=== PATIENT | female | born 1960 | race American Indian/Alaskan Native ===

== ENCOUNTER 2016-12-22 22:46 | Emergency (ER) | payer BC, OTHER ==
[~2016-12-22] VITALS: Ht 165.1 cm; Wt 80.7 kg
[~2016-12-22 22:46] MED LIST: CLOPIDOGREL75 MG PO; CRESTOR20 MG PO; GLIPIZIDE XL10 MG PO; JANUVIA100 MG PO; LISINOPRIL10 MG PO; METFORMIN HCL1000 MG PO; NORCO 5-325 TA1 EACH PO; PRILOSEC20 MG PO; PROMETHAZINE HC25 M1 PO
[2016-12-22] MEDS ORDERED: PANTOPRAZOLE SO40 MG PO (23:43)
[2016-12-23] MEDS ORDERED: NAPROXEN500 MG PO (01:00)
[2016-12-23] MEDS ORDERED: NORCO 5-325 TA1 EACH PO (01:00)
== END 2016-12-23 01:27 | disposition home or self-care (01) ==
LOC: ED 22:46
DX: M54.42 Lumbago with sciatica, left side (principal); E11.9 Type 2 diabetes mellitus without complications; F17.200 Nicotine dependence, unspecified, uncomplicated; Z90.49 Acquired absence of other specified parts of digestive tract; Z88.2 Allergy status to sulfonamides; Z79.899 Other long term (current) drug therapy; Z79.84 Long term (current) use of oral hypoglycemic drugs
CPT/HCPCS: 81001; 99283

== ENCOUNTER 2018-07-28 15:39 | Observation (INO) | payer OTHER ==
[~2018-07-28] VITALS: Ht 154.9 cm; Wt 79.2 kg
[~2018-07-28 15:39] MED LIST changes: -CRESTOR20 MG PO; +CRESTOR40 MG PO; -LISINOPRIL10 MG PO; +LISINOPRIL5 MG PO; +NAPROXEN500 MG PO; +PANTOPRAZOLE SO40 MG PO
--- NOTE | 2018-07-28 20:40 | NUR ---
RECEIVED REPORT FROM FANNIE IN ER. ALL QUESTIONS ANSWERED. AWAITING PT'S ARRIVAL TO FLOOR.
--- NOTE | 2018-07-28 20:58 | NUR ---
PT ARRIVED TO [facility] FLOOR. LOZENGE DOUGH MIXER ANT IN ROOM TO COMPLETE INITIAL ADMIT.
--- NOTE | 2018-07-28 21:15 | NUR ---
PT ADMITTED TO ROOM 124, FROM ED. SHE STATES SHE HAS BEEN COUGHING FOR COUPLE WEEKS NOW, HAS BEEN SNOWED IN AND UNABLE TO GET TO HER DR., WAS JUST GETTING WORSE. ABLE TO STAND OFF THE STRETCHER, TO THE STANDING SCALE WITH SBA, RA SATS IN THE 90'S, WITH NONPRODUCTIVE COUGH. COMPLAINS OF WEAKNESS, DENIES SMOKING OF RECENT. PT SL IN LAC, FLUSHES WELL; UP TO VOID WITHOUT DIFFICULTIES, STEADY ON FEET. IS CONCERNED ABOUT "YEAST INFECTION" BEING ON ABX. WILL LET PRIMARY RN, IN AM KNOW WELL THE CHARGE NURSE TO DISCUSS WITH . PT REQUESTED AND RECEIVED LUNCH BOX, DIET SPRITE, FRESH ICE WATER, AND SUGAR FREE PUDDING.
--- NOTE | 2018-07-28 23:48 | NUR ---
ASSESSMENT DONE. VVS FROM INITIAL ADMIT. PT REPORTS SOB W/ EXERTION. INTERMITTENT COUGH NOTED, PT REPORTS THIN CLEAR SPUTUM W/ COUGH. WHEEZES AUSCULATED W/ COUGH. PT REPORTS 8/10 PAIN R/T HEADACHE. PRN TYLENOL GIVEN. PT DENIES FURTHER NEEDS, CALL LIGHT IN REACH.
--- NOTE | 2018-07-29 01:58 | NUR ---
VITALS AND I&OS DONE AND CHARTED. BEDSIDE TABLE AND CALL LIGHT IN REACH. PT NEEDS NOTHING AT THIS TIME.
--- NOTE | 2018-07-29 06:18 | NUR ---
ASSESSMENT COMPLETE. NO NEW CONCERNS. PT CONTINUES TO HAVE INTERMITTENT COUGHING W/ THIN CLEAR SPUTUM PER PT. PT ON , SAT WNL. PRN TYLENOL GIVEN FOR 7/10 PAIN R/T HEADACHE. NO FURTHER NEEDS, CALL LIGHT IN REACH.
--- NOTE | 2018-07-29 07:00 | NUR ---
PT A/OX4, VSS. PAIN CONTROLLED WITH PRN TYLENOL FOR HEADACHE. PT ON RA, LUNG SOUNDS CLEAR, INTERMITTENT WHEEZES AT TIMES W/ COUGH. PRODUCTIVE COUGH W/ THIN WHITE SPUTUM. DYSPNEA W/ EXERTION, PT SBA. USES CALL LIGHT APPROPERITELY.
--- NOTE | 2018-07-29 08:29 | NUR ---
PATIENT FLU SWAB DONE THIS AM BY THE RN, PATIENT IS UP IN THE ROOM ON RA WITH NO C/O SOB. SHE HAS RELIEF OF HER ZAMBRANO AFTER TAKING THE TYLENOL PO THIS AM AND DENIES ANY OTHER PAIN. SHE STILL IS COUGHING UP THIN WHITE SPUTUM.
--- NOTE | 2018-07-29 08:47 | NUR ---
PATIENTS URINE SAMPLE COLLECTED AND SENT TO LAB
--- NOTE | 2018-07-29 10:35 | NUR ---
PROCAUTIONS FOR INFLUENZA DC'D DUE TO THE SWAB COMING BACK NEGATIVE, PATIENT'S ECHO BEING DONE IN THE ROOM AT THIS TIME.
--- NOTE | 2018-07-29 11:00 | NUR ---
PATIENT TOOK A SHOWER. CHANGED HER BED LINENS. SHE ALSO WASHED HER HAIR. SHE ALSO HAD A VISITOR.
[2018-07-29] MEDS ORDERED: FLONASE ALLERG9.9 ML NAS (11:29)
--- NOTE | 2018-07-29 11:30 | NUR ---
MED REC COMPLETE
--- NOTE | 2018-07-29 11:37 | NUR ---
DID PATIENT'S BLOOD SUGARS BREAKFAST LUNCH AND DINNER.
[2018-07-29] MEDS ORDERED: COLACE100 MG PO (11:52)
[2018-07-29] MEDS ORDERED: XYZAL5 MG PO (11:52)
--- NOTE | 2018-07-29 15:19 | NUR ---
PATIENT AMBULATED IN THE HALLWAY WITH STANDBY ASSIST, PATIENT REMAINED ABOVE 90 OXYGEN SATURATION MOST OF THE TIME BUT DID DROP DOWN TO 89% FOR A VERY SHORT TIME APROX. 5 SECONDS AND THEN BUMPED BACK UP ABOVE 90. SHE STATES THAT SHE HAS SOME SOB AND COUGHING WITH AMBULATION.
--- NOTE | 2018-07-29 17:09 | NUR ---
THIS PATIENT HAS REMAINED ON RA TODAY WITH C/O SOB WHEN UP AMBULATING. HER OXYGEN SATURATION DROPPED TO 89% WITH AMBULATION IN THE HALLWAY FOR ABOUT 5 SECONDS AND THEN THE PATIENT RECOVERED QUICKLY WITH O2 SATUATIONS ABOVE 90%. SHE HAS A DRY COUGH AND FEELS RELEIF OF SOB AFTER 2 DOSES OF LASIX TODAY.
--- NOTE | 2018-07-29 18:55 | NUR ---
SHIFT REPORT RECEIVED FROM DAYSHIFT LIT BOATENG. PT AWAKE, RR EVEN AND UNLABORED. PT APPEARS IN GOOD SPIRITS, SMILING NOTED. WHITE BOARD UPDATED. PT DENIES NEEDS, CALL LIGHT IN REACH.
--- NOTE | 2018-07-29 21:14 | NUR ---
patient was feeling a little hungry and asked for a snack. I double checked with Sue and she said that was okay. the patient recieved a SF quintono. patients call light was within reach.
--- NOTE | 2018-07-29 21:36 | NUR ---
ASSESSMENT COMPLETE, SCHEDULED MEDICATIONS GIVEN. SEE EMAR. PT A/OX4, RATES PAIN 12/22, R/T HEADACHE. PRN TYLENOL GIVEN PER PT REQUEST. VSS. LUNG SOUNDS CLEAR, INTERMITTENT COUGHING NOTED. PT STATES, "I FEEL BETTER TODAY". BS 214, 3 UNITS INSULIN SS GIVEN. PT AMBULATED 1/2 LOOP IN HALLWAY WITH THIS RN. PT TOLERATED AMBULATION WELL, MAINTAINED O2 SAT IN 90'S. PT NOW RESTING IN BED, DENIES FURTHER NEEDS. CALL LIGHT IN REACH.
--- NOTE | 2018-07-30 00:30 | NUR ---
PT VERBALIZES INABILITY TO SLEEP AND REQUESTING MELATONIN. MELATONIN NOT LISTED ON PT'S EMAR. SPOKE TO PT REGARDING NONPHARMACOLOGICAL SLEEP AID, PT AGREES TO TRY. PROVIDED PT WITH COMPLIMENTARY SLEEP NIGHT PACK. MUSIC ALSO PROVIDED VIA CD PLAYER. PT DENIES FURTHER NEEDS, CALL LIGHT IN REACH.
--- NOTE | 2018-07-30 03:15 | NUR ---
PT RESTING IN BED, EYES CLOSED. RR IS EVEN AND UNLABORED. PT APPEARS COMFORTABLE, NO SIGNS OF RESPIRTAORY DISTRESS NOTED. CALL LIGHT IN REACH.
--- NOTE | 2018-07-30 04:14 | NUR ---
ASSESSMENT COMPLETE. PT A/OX4, DENIES PAIN AND STATES, "MY HEADACHE WENT AWAY". INTERMITTENT COUGHING NOTED W/ AUSCULTATION. LUNG SOUNDS CLEAR. PT VERBALIZES THAT SHE IS STILL COUGHING UP THIN WHITE SPUTUM AT TIMES. DENIES NEEDS, CALL LIGHT IN REACH.
--- NOTE | 2018-07-30 07:35 | NUR ---
RECIEVED BEDSIDE REPORT FROM LIT WHITTAKER. PT AWAKE AND ALERT IN BED. PT REPORTS NO SOB, MILD HEADACHE PAIN, REQUESTED TYLENOL. CALL LIGHT IN REACH. PT HAD 3# WEIGHT LOSS.
--- NOTE | 2018-07-30 11:38 | NUR ---
DID PATIENT'S BLOOD SUGAR THIS MORNING ALSO SET HER UP FOR A SHOWER AND WE DID 1 LAP AROUND MED SURG.
--- NOTE | 2018-07-30 12:38 | NUR ---
PT SITTING IN CHAIR, WATCHING TV. SHE MENTIONED THAT SHE FEELS SO MUCH BETTER THAT WHEN SHE WAS ADMITTED. THANKED ME FOR COMING IN. WILL FOLLOW NEEDED
[2018-07-30] MEDS ORDERED: DOXYCYCLINE HY100 MG PO (12:45)
[2018-07-30] MEDS ORDERED: POTASSIUM CHLO20 ME1 PO (12:46)
[2018-07-30] MEDS ORDERED: FUROSEMIDE40 MG PO (12:47)
[2018-07-30] MEDS ORDERED: TESSALON PERLE100 MG PO (12:51)
[2018-07-30] MEDS ORDERED: VENTOLIN HFA18 GM INH (14:20)
--- NOTE | 2018-07-30 16:40 | NUR ---
PT DISCHARGE TEACHING COMPLETE. PT HAD QUESTIONS ON MEDICATIONS AND REQUESTED DOSE OF ANTI-FUNGAL FOR YEAST INFECTION DUE TO ANTIBIOTICS. DR HICKS ORDERED ONE TIME DOSE OF ORAL MEDICATION. ALL OTHER MEDICATIONS PRINTED AND SENT TO [facility]. PT SISTER CAME FOR PT. IV REMOVED, CATH INTACT. VSS.
== END 2018-07-30 16:15 | disposition home or self-care (01) ==
LOC: ED 15:39 → MS 15:41
PROVIDERS: ADMIT Student in an Organized Health Care Education/Training Program
DX: J18.9 Pneumonia, unspecified organism (principal); E11.9 Type 2 diabetes mellitus without complications; F17.200 Nicotine dependence, unspecified, uncomplicated; I10 Essential (primary) hypertension; E87.70 Fluid overload, unspecified; J96.91 Respiratory failure, unspecified with hypoxia; Z86.73 Personal history of transient ischemic attack (TIA), and cerebral infarction without residual deficits; Z88.2 Allergy status to sulfonamides; Z79.84 Long term (current) use of oral hypoglycemic drugs; Z79.02 Long term (current) use of antithrombotics/antiplatelets; Z79.899 Other long term (current) drug therapy
CPT/HCPCS: 36415; 71045; 80048; 80053; 81001; 83605; 83735; 83880; 85025; 87040; 87502; 93306; 94640; 96365; 96366; 96367; 96368; 96375; 96376; 99285-25; 99406; G0378; J0456; J0696; J1815; J1940; J3475

== ENCOUNTER 2019-04-26 12:08 | Emergency (ER) | payer BC, OTHER ==
[~2019-04-26] VITALS: Ht 154.9 cm; Wt 79.2 kg
--- OUTSIDE RECORDS SUMMARY | ~2019-04-26 | XMS | Encounter Summary ---
Demographics + + + | Address | [address] | | | [place] [address] | + + + | Home Phone | | + + + | Preferred Language | Unknown | + + + | Marital Status | Unknown | + + + | Faith Affiliation | Unknown | + + + | Race | Unknown | + + + | Ethnic Group | Unknown | + + + Author + + + | Author | [facility] | | | and [place] | + + + | Organization | [facility] | | | and [place] | + + + | Address | Unknown | + + + | Phone | Unavailable | + + + Support + + +---------+ + | Name | Relationship | Address | Phone | + + +---------+ + | Paige Sanz | ECON | Unknown | | + + +---------+ + Care Team Providers + +------+ + | Care Glove Brusher Name | Role | Phone | + +------+ + | Jess Sow PA-C | PCP | | + +------+ + Encounter Details +--------+ + + + + | Date | Type | Department | Care Team | Description | +--------+ + + + + | 07/29/ | Orders Only | [facility] | [address] | | | 2019 | | [address] | | [address] | [place] [address] | | | | | [place], [place] | [phone] | | | | | [address] | | | | | | [phone] | | | +--------+ + + + + Social History + +-------+ +--------+------+ | Tobacco Use | Types | Packs/Day | Years | Date | | | | | Used | | + +-------+ +--------+------+ | Never Assessed | | | | | + +-------+ +--------+------+ + + + | Sex Assigned at | Date Recorded | | | | + + + | Not on file | | + + + + + + + | Job Start Date | Occupation | Industry | + + + + | Not on file | Not on file | Not on file | + + + + + + + + | Travel History | Travel Start | Travel End | + + + + + + | No recent travel history available. | + + documented as of this encounter Plan of Treatment +--------+---------+ + + + | Date | Type | Specialty | Care Team | Description | +--------+---------+ + + + | 05/09/ | Office | Cardiology | Hilda Judge | | | 2019 | Visit | | [address] | | | | | | [address] | | | | | | [place] [address] | | | | | | [phone] | | | | | | | | +--------+---------+ + + + documented as of this encounter Procedures + +--------+ + + + | Procedure Name | Priori | Date/Time | Associated Diagnosis | Comments | | | ty | | | | + +--------+ + + + | ECHO INTERPRETATION | Routin | 07/29/2018 | | Results for this | | OF OUTSIDE FILMS | e | 11:25 AM | | procedure are in the | | | | PST | | results section. | + +--------+ + + + documented in this encounter Results ECHO Interpretation of Outside Films (07/29/2018 11:25 AM PST) + + | Specimen | + + | | + + + + + | Impressions | Performed At | + + + | 1. The left ventricle is normal in size, wall thickness and low | | | normal systolic function EF 50-55%. 2. The right ventricle is normal | | | in size and function. 3. Moderate mitral regurgitation, posterior | | | directed, moderately dilated left atrium. 4. There is a trivial | | | pericardial effusion present. | | + + + + + + | Narrative | Performed At | + + + | Patient Name: Batsheva Rosa Date of : 1960 | | | Performing Physician: Rmoel Kline | | | | | | INDICATIONS Volume overload, pneumonia CONCLUSIONS | | | 1. The left ventricle is normal in size, wall thickness | | | and low normal systolic function EF 50-55%. 2. The right ventricle is | | | normal in size and function. 3. Moderate mitral regurgitation, | | | posterior directed, moderately dilated left atrium. 4. There is a | | | trivial pericardial effusion present. FINDINGS -------- ECG | | | rhythm: Sinus rhythm with irregular beats. Study: A 2-dimensional | | | transthoracic echocardiogram with m-mode, spectral and color flow | | | Doppler was perfomed. Study: This was a technically adequate study. | | | Left Ventricle: Overall left ventricular systolic function is | | | low-normal with, an EF between 50 - 55 %. Left Ventricle: The left | | | ventricle cavity size is normal. Left Ventricle: Left ventricular | | | wall thickness is normal. Left Ventricle: There is mild global | | | hypokinesis of LV contractility. Left Ventricle: Pseudonormal LV | | | diastolic filling pattern, consistent with elevated LA pressure and | | | moderate dysfunction (Grade II). Right Ventricle: The right ventricle | | | is normal in size and function. Left Atrium: The left atrium is | | | moderately enlarged. Right Atrium: The right atrium is normal in | | | size. Aortic Valve: The aortic valve appears to be trileaflet. | | | Aortic Valve: There is no evidence of aortic regurgitation. Aortic | | | Valve: There is no evidence of aortic stenosis. Mitral Valve: Mitral | | | valve is thickened. Mitral Valve: Moderate mitral regurgitation is | | | present Mitral Valve: , predominately a posteriorly directed jet. | | | Tricuspid Valve: The tricuspid valve appears structurally normal. | | | Tricuspid Valve: Mild tricuspid regurgitation present. Tricuspid | | | Valve: There is mild pulmonary hypertension. Tricuspid Valve: The | | | right ventricular systolic pressure (pulmonary artery systolic | | | pressure), as measured by Doppler, is 35.51mmHg. Pulmonic Valve: The | | | pulmonic valve is normal. Pulmonic Valve: Trace pulmonic | | | regurgitation. Pericardium: There is a trivial pericardial effusion | | | present. Pericardium: Pleural effusion present seen in image #72. | | | IVC/Hepatic Veins: The IVC is normal size (1.5-2.5cm) and collapses | | | >50% with sniff, consistent with central venous pressures of 5-10mmHg. | | | Aorta: Aortic arch not well seen. MEASUREMENTS | | | Ao asc: 2.85 cm Ao Diam: 2.75 cm Ao sinus: 3.[address] | | | junct: 2.43 cm IVC: 1.85 cm LA Major: 4.94 cm EDV(Teich): | | | 128.59 ml IVSd: 0.83 cm LVIDd: 5.18 cm LVPWd: 0.83 cm | | | LVOT Area: 3.15 cm2 LVOT Diam: 2.00 cm %FS: 21.94 % | | | EF(Teich): 44.04 % ESV(Teich): 71.94 ml LVIDs: 4.04 cm | | | SV(Teich): 56.64 ml RA Major: 4.72 cm RV Major: 6.79 cm RV | | | Minor: 3.17 cm RVIDd: 2.80 cm LVEF MOD A2C: 46.15 % SV | | | MOD A2C: 41.11 ml LVEF MOD A4C: 46.47 % SV MOD A4C: 44.18 | | | ml EF Biplane: 47.22 % LVEDV MOD BP: 94.48 ml LVESV MOD BP: | | | 49.86 ml LVEDV MOD A2C: 89.07 ml LVLd A2C: 7.02 cm LVEDV | | | MOD A4C: 95.07 ml LVLd A4C: 7.08 cm LVESV MOD A2C: 47.96 ml | | | LVLs A2C: 6.25 cm LVESV MOD A4C: 50.88 ml LVLs A4C: 6.06 | | | cm LAESV(A-L): 80.37 ml LAESV Index (A-L): 44.65 ml/m2 LAAs | | | A2C: 21.66 cm2 LAESV A-L A2C: 74.74 ml LALs A2C: 5.32 cm | | | LAAs A4C: 22.69 cm2 LAESV A-L A4C: 84.20 ml LALs A4C: 5.19 | | | cm RAAs: 15.30 cm2 RAESV A-L: 41.96 ml RAESV MOD: 40.64 ml | | | RALs: 4.73 cm TAPSE: 2.30 cm AV maxP.17 mmHg AV | | | meanP.12 mmHg AV Vmax: 1.13 m/s AV Vmean: 0.83 m/s AV | | | VTI: 23.21 cm GREGORY Vmax: 2.29 cm2 GREGORY (VTI): 2.25 cm2 AVAI | | | Vmax: 0.00 cm2/m2 AVAI (VTI): 0.00 cm2/m2 LVOT maxP.75 | | | mmHg LVOT meanP.52 mmHg LVSI Dopp: 29.05 ml/m2 LVSV Dopp: | | | 52.30 ml LVOT Vmax: 0.82 m/s LVOT Vmean: 0.58 m/s LVOT | | | VTI: 16.59 cm MV A Derick: 0.63 m/s MV Dec Beadle: 11.44 m/s2 | | | MV DecT: 94.72 ms MV E Derick: 1.08 m/s MV E/A Ratio: 1.70 MV | | | PHT: 27.47 ms MVA By PHT: 8.00 cm2 Septal e': 0.03 m/s | | | Septal E/e': 32.67 Lateral e': 0.06 m/s Lateral E/e': 17.97 | | | RAP: 5 mmHg RVSP: 35.51 mmHg TR maxP.51 mmHg TR | | | Vmax: 2.76 m/s Laundry Routeman: LIAT Authenticated by: Romel | | | Eliud Report Date/Time: 07-29-2018 16:58:26 | | + + + + ---------+ | Procedure Note | + ---------+ | Jesus, Rad Conversion - 02/03/2019 1:45 PM PDT Patient Name: Kelton Rosa of | | : 1960 Performing Physician: Romel | | Eliud INDICATIONS------ | | -----Volume overload, pneumonia CONCLUSIONS 1. The left ventricle is normal in | | size, wall thickness and low normal systolic function EF 50-55%.2. The right ventricle | | is normal in size and function.3. Moderate mitral regurgitation, posterior directed, | | moderately dilated left atrium.4. There is a trivial pericardial effusion present. | | FINDINGS--------ECG rhythm: Sinus rhythm with irregular beats.Study: A 2-dimensional | | transthoracic echocardiogram with m-mode, spectral and color flow Doppler was | | perfomed.Study: This was a technically adequate study.Left Ventricle: Overall left | | ventricular systolic function is low-normal with, an EF between 50 - 55 %.Left | | Ventricle: The left ventricle cavity size is normal.Left Ventricle: Left ventricular | | wall thickness is normal.Left Ventricle: There is mild global hypokinesis of LV | | contractility.Left Ventricle: Pseudonormal LV diastolic filling pattern, consistent with | | elevated LA pressure and moderate dysfunction (Grade II).Right Ventricle: The right | | ventricle is normal in size and function.Left Atrium: The left atrium is moderately | | enlarged.Right Atrium: The right atrium is normal in size.Aortic Valve: The aortic valve | | appears to be trileaflet.Aortic Valve: There is no evidence of aortic | | regurgitation.Aortic Valve: There is no evidence of aortic stenosis.Mitral Valve: Mitral | | valve is thickened.Mitral Valve: Moderate mitral regurgitation is presentMitral Valve: | | , predominately a posteriorly directed jet.Tricuspid Valve: The tricuspid valve appears | | structurally normal.Tricuspid Valve: Mild tricuspid regurgitation present.Tricuspid | | Valve: There is mild pulmonary hypertension.Tricuspid Valve: The right ventricular | | systolic pressure (pulmonary artery systolic pressure), as measured by Doppler, is | | 35.51mmHg.Pulmonic Valve: The pulmonic valve is normal.Pulmonic Valve: Trace pulmonic | | regurgitation.Pericardium: There is a trivial pericardial effusion present.Pericardium: | | Pleural effusion present seen in image #72.IVC/Hepatic Veins: The IVC is normal size | | (1.5-2.5cm) and collapses >50% with sniff, consistent with central venous pressures of | | 5-10mmHg.Aorta: Aortic arch not well seen. MEASUREMENTS Ao asc: 2.85 cmAo | | Diam: 2.75 cmAo sinus: 3.[address] junct: 2.43 cmIVC: 1.85 cmLA Major: 4.94 | | cmEDV(Teich): 128.59 mlIVSd: 0.83 cmLVIDd: 5.18 cmLVPWd: 0.83 cmLVOT Area: | | 3.15 [id number] Diam: 2.00 cm%FS: 21.94 %EF(Teich): 44.04 %ESV(Teich): 71.94 | | mlLVIDs: 4.04 cmSV(Teich): 56.64 mlRA Major: 4.72 cmRV Major: 6.79 cmRV Minor: | | 3.17 cmRVIDd: 2.80 cmLVEF MOD A2C: 46.15 %SV MOD A2C: 41.11 mlLVEF MOD A4C: | | 46.47 %SV MOD A4C: 44.18 mlEF Biplane: 47.22 %LVEDV MOD BP: 94.48 mlLVESV MOD BP: | | 49.86 mlLVEDV MOD A2C: 89.07 mlLVLd A2C: 7.02 cmLVEDV MOD A4C: 95.07 mlLVLd A4C: | | 7.08 cmLVESV MOD A2C: 47.96 mlLVLs A2C: 6.25 cmLVESV MOD A4C: 50.88 mlLVLs A4C: | | 6.06 cmLAESV(A-L): 80.37 mlLAESV Index (A-L): 44.65 ml/m2LAAs A2C: 21.66 | | [id number] A-L A2C: 74.74 mlLALs A2C: 5.32 cmLAAs A4C: 22.69 [id number] A-L A4C: | | 84.20 mlLALs A4C: 5.19 cmRAAs: 15.30 [id number] A-L: 41.96 mlRAESV MOD: 40.64 | | mlRALs: 4.73 cmTAPSE: 2.30 cmAV maxP.17 mmHgAV meanP.12 mmHgAV Vmax: | | 1.13 m/Helio Vmean: 0.83 m/Helio VTI: 23.21 cmAVA Vmax: 2.29 cm2AVA (VTI): 2.25 | | [id number] Vmax: 0.00 cm2/m2AVAI (VTI): 0.00 cm2/m2LVOT maxP.75 mmHgLVOT meanPG: | | 1.52 mmHgLVSI Dopp: 29.05 ml/m2LVSV Dopp: 52.30 mlLVOT Vmax: 0.82 m/sLVOT Vmean: | | 0.58 m/sLVOT VTI: 16.59 cmMV A Derick: 0.63 m/sMV Dec Beadle: 11.44 m/s2MV DecT: | | 94.72 msMV E Derick: 1.08 m/sMV E/A Ratio: 1.70MV PHT: 27.47 msMVA By PHT: 8.00 | | [id number] e': 0.03 m/sSeptal E/e': 32.67Lateral e': 0.06 m/sLateral E/e': | | 17.97RAP: 5 mmHgRVSP: 35.51 mmHgTR maxP.51 mmHgTR Vmax: 2.76 m/s | | Laundry Routeman: DHAuthenticated by: Romel [facility] Date/Time: 07-29-2018 16:58:26 | | IMPRESSION: 1. The left ventricle is normal in size, wall thickness and low normal | | systolic function EF 50-55%.2. The right ventricle is normal in size and function.3. | | Moderate mitral regurgitation, posterior directed, moderately dilated left atrium.4. | | There is a trivial pericardial effusion present. | |Ao sinus: 3.02 cm | |Ao st junct: 2.43 cm | |IVC: 1.85 cm | |LA Major: 4.94 cm | |EDV(Teich): 128.59 ml | |IVSd: 0.83 cm | |LVIDd: 5.18 cm | |LVPWd: 0.83 cm | |LVOT Area: 3.15 cm2 | |LVOT Diam: 2.00 cm | |%FS: 21.94 % | |EF(Teich): 44.04 % | |ESV(Teich): 71.94 ml | |LVIDs: 4.04 cm | |SV(Teich): 56.64 ml | |RA Major: 4.72 cm | |RV Major: 6.79 cm | |RV Minor: 3.17 cm | |RVIDd: 2.80 cm | |LVEF MOD A2C: 46.15 % | |SV MOD A2C: 41.11 ml | |LVEF MOD A4C: 46.47 % | |SV MOD A4C: 44.18 ml | |EF Biplane: 47.22 % | |LVEDV MOD BP: 94.48 ml | |LVESV MOD BP: 49.86 ml | |LVEDV MOD A2C: 89.07 ml | |LVLd A2C: 7.02 cm | |LVEDV MOD A4C: 95.07 ml | |LVLd A4C: 7.08 cm | |LVESV MOD A2C: 47.96 ml | |LVLs A2C: 6.25 cm | |LVESV MOD A4C: 50.88 ml | |LVLs A4C: 6.06 cm | |LAESV(A-L): 80.37 ml | |LAESV Index (A-L): 44.65 ml/m2 | |LAAs A2C: 21.66 cm2 | |LAESV A-L A2C: 74.74 ml | |LALs A2C: 5.32 cm | |LAAs A4C: 22.69 cm2 | |LAESV A-L A4C: 84.20 ml | |LALs A4C: 5.19 cm | |RAAs: 15.30 cm2 | |RAESV A-L: 41.96 ml | |RAESV MOD: 40.64 ml | |RALs: 4.73 cm | |TAPSE: 2.30 cm | |AV maxP.17 mmHg | |AV meanP.12 mmHg | |AV Vmax: 1.13 m/s | |AV Vmean: 0.83 m/s | |AV VTI: 23.21 cm | |GREGORY Vmax: 2.29 cm2 | |GREGORY (VTI): 2.25 cm2 | |AVAI Vmax: 0.00 cm2/m2 | |AVAI (VTI): 0.00 cm2/m2 | |LVOT maxP.75 mmHg | |LVOT meanP.52 mmHg | |LVSI Dopp: 29.05 ml/m2 | |LVSV Dopp: 52.30 ml | |LVOT Vmax: 0.82 m/s | |LVOT Vmean: 0.58 m/s | |LVOT VTI: 16.59 cm | |MV A Derick: 0.63 m/s | |MV Dec Beadle: 11.44 m/s2 | |MV DecT: 94.72 ms | |MV E Derick: 1.08 m/s | |MV E/A Ratio: 1.70 | |MV PHT: 27.47 ms | |MVA By PHT: 8.00 cm2 | |Septal e': 0.03 m/s | |Septal E/e': 32.67 | |Lateral e': 0.06 m/s | |Lateral E/e': 17.97 | |RAP: 5 mmHg | |RVSP: 35.51 mmHg | |TR maxP.51 mmHg | |TR Vmax: 2.76 m/s | | | |Laundry Routeman: LIAT | |Authenticated by: Romel Kline | |Report Date/Time: 07-29-2018 16:58:26 | | | |IMPRESSION: | |1. The left ventricle is normal in size, wall thickness and low normal systolic function EF 50-55%. | |2. The right ventricle is normal in size and function. | |3. Moderate mitral regurgitation, posterior directed, moderately dilated left atrium. | |4. There is a trivial pericardial effusion present. | + ---------+ documented in this encounter Visit Diagnoses Not on filedocumented in this encounter"
--- OUTSIDE RECORDS SUMMARY | ~2019-04-26 | XMS | Encounter Summary ---
Demographics + + + | Address | [address] | | | [place] [address] | + + + | Home Phone | | + + + | Preferred Language | Unknown | + + + | Marital Status | Unknown | + + + | Mu-Ism Affiliation | Unknown | + + + | Race | Unknown | + + + | Ethnic Group | Unknown | + + + Author + + + | Author | [facility] | | | and Alanana | + + + | Organization | [facility] | | | and Alanana | [...] Team Providers + +------+ + | Care Air Control/Anti Air Warfare Officer Name | Role | Phone | + [...] | | | | [address] | [place] [address] | | | | | [place], [place] | [phone] | | | | | [address] | | | | | | [phone] | | | +--------+ + + + [...] [address] | | | | | | [place] [address] | | | | | | [phone] | | | | | | | [...] : 1960 | | | Performing Physician: Romel Kline | | | | | | [...] MV A Derick: 0.63 m/s MV Dec Pocahontas: 11.44 m/s2 | | | MV DecT: [...] TR | | | Vmax: 2.76 m/s Police Guard: LIAT Authenticated by: Romel | | | [...] cmLVPWd: 0.83 cmLVOT Area: | | 3.15 re8EYYT Diam: 2.00 cm%FS: 21.94 %EF(Teich): 44.04 %ESV(Teich): [...] (A-L): 44.65 ml/m2LAAs A2C: 21.66 | | [id number] A-L A2C: 74.74 mlLALs A2C: 5.32 cmLAAs A4C: 22.69 im8MLYIU A-L A4C: | | 84.20 mlLALs A4C: 5.19 cmRAAs: 15.30 bw8MAOON A-L: 41.96 mlRAESV MOD: 40.64 | | mlRALs: 4.73 cmTAPSE: 2.30 cmAV maxP.17 mmHgAV meanP.12 mmHgAV Vmax: | | 1.13 m/Helio Vmean: 0.83 m/Helio VTI: 23.21 cmAVA Vmax: 2.29 cm2AVA (VTI): 2.25 | | vb2YIHW Vmax: 0.00 cm2/m2AVAI (VTI): 0.00 cm2/m2LVOT maxP.75 mmHgLVOT meanPG: | | 1.52 mmHgLVSI Dopp: 29.05 ml/m2LVSV Dopp: 52.30 mlLVOT Vmax: 0.82 m/sLVOT Vmean: | | 0.58 m/sLVOT VTI: 16.59 cmMV A Derick: 0.63 m/sMV Dec Pocahontas: 11.44 m/s2MV DecT: | | 94.72 msMV E Derick: 1.08 m/sMV E/A Ratio: 1.70MV PHT: 27.47 msMVA By PHT: 8.00 | | ne0Cjbmbm e': 0.03 m/sSeptal E/e': 32.67Lateral e': 0.06 m/sLateral E/e': | | 17.97RAP: 5 mmHgRVSP: 35.51 mmHgTR maxP.51 mmHgTR Vmax: 2.76 m/s | | Police Guard: DHAuthenticated by: Romel [facility] Date/Time: 07-29-2018 16:58:26 | | IMPRESSION: 1. [...] A Derick: 0.63 m/s | |MV Dec Pocahontas: 11.44 m/s2 | |MV DecT: 94.72 ms [...] |TR Vmax: 2.76 m/s | | | |Police Guard: LIAT | |Authenticated by: Romel Kline | [...]
--- OUTSIDE RECORDS SUMMARY | ~2019-04-26 | XMS | Clinical Summary ---
Demographics + + + | Address | [address] | | | [place] [address] | + + + | Home Phone | | + + + | Preferred Language | Unknown | + + + | Marital Status | Single | + + + | Adventism Affiliation | Unknown | + + + | Race | Unknown | + + + | Ethnic Group | Unknown | + + + Author + + + | Author | [facility] (Historical as of | | | 01-29-19) | + + + | Organization | [facility] (Historical as of | | | 01-29-19) | + + + | Address | Unknown | + + + | Phone | Unavailable | + + + Support + + +---------+ + | Name | Relationship | Address | Phone | + + +---------+ + | Paige Sanz | ECON | Unknown | | + + +---------+ + Care Team Providers + +------+ + | Care Field Artillery Basic Name | Role | Phone | + +------+ + | Jess Sow PA-C | PP | | + +------+ + Allergies Not on File Current Medications Not on file Active Problems Not on file Social History + +-------+ +--------+------+ | Tobacco [...] on file | | + + + Plan of Treatment + + + + + | Health Maintenance | Due Date | Last Done | Comments | + + + + + | Vaccine: | | | | | Dtap/Tdap/Td (1 - | 7 | | | | Tdap) | | | | + + + + + | Cervical Cancer | | | | | Screening (Pap) | 8 | | | + + + + + | Breast Cancer | | | | | Screening | 8 | | | | (Mammogram) | | | | + + + + + | Colon Cancer | | | | | Screening | 8 | | | | (Colonoscopy) | | | | + + + + + | Vaccine: Zoster (1 | | | | | of 2) | 8 | | | + + + + + | Vaccine: Influenza | | | | | (#1) | 9 | | | + + + + + Results Not on filefrom Last 3 Months Insurance + +--------+ +------+-------+ + | Payer | Benefi | Subscriber | Type | Phone | Address | | | t Plan | ID | | | | | | / | | | | | | | Group | | | | | + +--------+ +------+-------+ + | PREMERA | PREMER | [id number] | | | [address] [address] | | | A BLUE | | | | [place], [place] | | | [place] | | | | [address] | | | FED | | | | | | | PPO | | | | | + +--------+ +------+-------+ + | [employer] | YELLOW | [id number] | | | | | PLANS | [place] | | | | | + +--------+ +------+-------+ + + +--------+ +--------+ + + | Guarantor Name | Accoun | Relation to | Date | Phone | Billing Address | | | t Type | Patient | of | | | | | | | | | | + +--------+ +--------+ + + | NUNU MOURA | Person | Self | [birth year] | Home: | [address] | | | [place] | | [phone] | [phone] | [place] [address] | | | [place] | | | [phone] | | + +--------+ +--------+ + +"
--- OUTSIDE RECORDS SUMMARY | ~2019-04-26 | XMS | Clinical Summary ---
Demographics + + + | Address | [address] | | | [place] [address] | + + + | Home Phone | | + + + | Preferred Language | Unknown | + + + | Marital Status | Single | + + + | Sabianist Affiliation | Unknown | + + + | Race | Unknown | + + + | Ethnic Group | Unknown | + + + Author + + + | Author | [email or web address] (Historical as of | | | 01-29-19) | + + + | Organization | [email or web address] (Historical as of | | | 01-29-19) [...] Team Providers + +------+ + | Care Polyethylene Bag Machine Operator Name | Role | Phone | + [...] +------+-------+ + | PREMERA | PREMER | [id number] | | | [address] [address] | | | A BLUE | | | | [place], [place] | | | [place] | | | | [address] | | | FED | | | | | | | PPO | | | | | + +--------+ +------+-------+ + | [employer] | YELLOW | [id number] | | | | | PLANS | [...] | Self | [birth year] | Home: | [address] | | | [place] | | [phone] | [phone] | [place] [address] | | | [place] | | | [phone] | | + +--------+ +--------+ + +"
--- OUTSIDE RECORDS SUMMARY | ~2019-04-26 | XMS | Clinical Summary ---
Demographics + + + | Address | [address] | | | [place] [address] | + + + | Home Phone | | + + + | Preferred Language | Unknown | + + + | Marital Status | Unknown | + + + | Jainism Affiliation | Unknown | + + + | Race | Unknown | + + + | Ethnic Group | Unknown | + + + Author + + + | Author | [facility] | | | and Alanana | + + + | Organization | [facility] | | | and Alanana [...] Team Providers + +------+ + | Care Manager Universal Name | Role | Phone | + +------+ + | Jess Sow PA-C | PCP | | + +------+ + Allergies + + + + + + | Active Allergy | Reactions | Severity | Noted | Comments | | | | | Date | | + + + + + + | Sulfa Antibiotics | Hives | | 04/04/20 | | | | | | 19 | | + + + + + + Medications + + + +---------+------+------+-------+ | Medication | Sig | Dispensed | Refills | Star | End | Statu | | | | | | t | Date | s | | | | | | Date | | | + + + +---------+------+------+-------+ | acetaminophen | Take 650 mg by mouth | | 0 | | | Activ | | (TYLENOL) 325 mg | every 4 hours as | | | | | e | | tablet | needed for Pain. | | | | | | + + + +---------+------+------+-------+ | cholecalciferol | Take 5,000 Units by | | 0 | | | Activ | | (VITAMIN D-3) 5000 | mouth Daily. | | | | | e | | units TABS | | | | | | | + + + +---------+------+------+-------+ | clopidogrel | Take 75 mg by mouth | | 0 | | | Activ | | (PLAVIX) 75 mg | Daily. | | | | | e | | tablet | | | | | | | + + + +---------+------+------+-------+ | cyanocobalamin | Take 50 mcg by mouth | | 0 | | | Activ | | (VITAMIN B-12) 100 | Daily. | | | | | e | | MCG tablet | | | | | | | + + + +---------+------+------+-------+ | lisinopril | Take 5 mg by mouth | | 0 | | | Activ | | (PRINIVIL, ZESTRIL) | Daily. | | | | | e | | 5 mg tablet | | | | | | | + + + +---------+------+------+-------+ | Loratadine 10 MG | Take by mouth. | | 0 | | | Activ | | CAPS | | | | | | e | + + + +---------+------+------+-------+ | pantoprazole | Take 40 mg by mouth | | 0 | | | Activ | | (PROTONIX) 40 mg | every morning | | | | | e | | tablet | (before breakfast). | | | | | | + + + +---------+------+------+-------+ | rosuvastatin | Take 40 mg by mouth | | 0 | | | Activ | | (CRESTOR) 40 MG | nightly. | | | | | e | | tablet | | | | | | | + + + +---------+------+------+-------+ | | Take 1 tablet by | | 0 | | | Activ | | SITagliptin-metFORMI | mouth 2 times daily | | | | | e | | N (SANDRA) 50-1,000 | (with breakfast & | | | | | | | mg per tablet | dinner). | | | | | | + + + +---------+------+------+-------+ | bisoprolol | Take 1 tablet by | 30 | 11 | 10/2 | | Activ | | (ZEBETA) 5 mg tablet | mouth Daily. 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 | | | | | | (HCC); Pedal edema; | | | | | | Palpitations; | | | | | | Pressure in left | | | | | | side of chest; Type | | | | | | 2 diabetes mellitus | | | | | | 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, | | | | | | without long-term | | | | | | current use of | | | | | | insulin (HCC); | | | | | | Essential | | | | | | hypertension | +--------+---------+ + + + from Last 3 Months Family History + + +------+ + | Medical History | Relation | Name | Comments | + + +------+ + | Diabetes, NIDDM | Brother | | | + + +------+ + | Heart disease | Brother | | unknown heart problem | + + +------+ + | Diabetes, NIDDM | Brother | | | + + +------+ + | Diabetes, NIDDM | Brother | | | + + +------+ + | Other (see comment) | Brother | | PVD | + + +------+ + | Diabetes, NIDDM | Father | | | + + +------+ + | Heart failure | Father | | | + + +------+ + | Hypertension | Father | | | + + +------+ + | Other (see comment) | Father | | PVD | + + +------+ + | Stroke | Father | | x 2 | + + +------+ + | Diabetes, NIDDM | Mother | | | + + +------+ + | Heart failure | Mother | | | + + +------+ + | Hypertension | Mother | | | + + +------+ + | Other (see comment) | Mother | | PVD | + + +------+ + | Restless leg | Mother | | | + + +------+ + | Arrhythmia | Sister | | | + + +------+ + | Diabetes, NIDDM | Sister | | | + + +------+ + | Other (see comment) | Sister | | esophageal stricture | + + +------+ + + +------+ + + | Relation | Name | Status | Comments | + +------+ + + | Brother | | Alive | | + +------+ + + | Brother | | Alive | | + +------+ + + | Brother | | Alive | | + +------+ + + | Father | | | heart disease | | | | (Age | | | | | 81) | | + +------+ + + | Mother | | | heart disease | | | | (Age | | | | | 80) | | + +------+ + + | Sister | | Alive | | + +------+ + + | Sister | | Alive | | + +------+ + + Social History + +-------+ +--------+------+ | Tobacco Use | Types | Packs/Day | Years | Date | | | | | Used | | + +-------+ +--------+------+ | Current Some Day | | | | | | Smoker | | | | | + +-------+ +--------+------+ + +---+---+---+ | Smokeless Tobacco: | | | | | Never Used | | | | + +---+---+---+ + + | Tobacco Cessation: Ready to Quit: No; Counseling Given: Yes | | Comments: smokes 1 cigarette every 1-3 months | + + + + +---------+ + | Alcohol Use | Drinks/Week | oz/Week | Comments | + + +---------+ + | Yes | | | 1 rum drink 2 x per | | | | | month | + + +---------+ + + + + | Sex Assigned at [...] recent travel history available. | + + Last Filed Vital Signs + + + + + | Vital Sign | Reading | Time Taken | Comments | + + + + + | Blood Pressure | 140/90 | 2019 9:35 AM | RA | | | | PDT | | + + + + + | Pulse | 77 | 2019 9:30 AM | | | | | PDT | | + + + + + | Temperature | - | - | | + + + + + | Respiratory Rate | - | - | | + + + + + | Oxygen Saturation | 98% | 2019 9:30 AM | | | | | PDT | | + + + + + | Inhaled Oxygen | - | - | | | Concentration | | | | + + + + + | Weight | 86.6 kg (190 lb 14.4 | 2019 9:30 AM | | | | oz) | PDT | | + + + + + | Height | - | - | | + + + + + | Body Mass Index | - | - | | + + + + + Plan of Treatment +--------+---------+ + + + | Date | Type | Specialty | Care Team | Description | +--------+---------+ + + + | 05/09/ | Office | Cardiology | Hilda Judge | | | 2018 | Visit | | [address] | | | | | | [address] | | | | | | [place] [address] | | | | | | [phone] | | | | | | | | +--------+---------+ + + + + + + + + | Health Maintenance | Due Date | Last Done | Comments | + + + + + | Hepatitis C | | | | | Screening | 8 | | | + + + + + | Vaccine: | | | | | Pneumococcal 19-64 | 4 | | | | (1 of 1 - PPSV23) | | | | + + + + + | Diabetic Eye Exam | | | | | | 6 | | | + + + + + | Diabetic Foot Exam | | | | | | 6 | | | + + + + + | Hemoglobin A1c | | | | | Screening | 6 | | | + + + + + | Cervical Cancer | | | | | Screening (Pap) | 8 | | | + + + + + | Vaccine: | | 06/28/2004, 03/29/1997 | | | Dtap/Tdap/Td (1 - | 5 | | | | Tdap) | | | | + + + + + | Colorectal Cancer | | | | | Screening | 8 | | | | (Colonoscopy) | | | | + + + + + | Vaccine: Zoster (1 | | | | | of 2) | 8 | | | + + + + + | Breast Cancer | | | | | Screening | 3 | | | + + + + + | Vaccine: Influenza | | 08/17/2018, 04/15/2017, | | | (#1) | 9 | 03/26/2016, Additional history | | | | | exists | | + + + + + Procedures + +--------+ + + + | Procedure Name | Priori | Date/Time | Associated Diagnosis | Comments | | | ty | | | | + +--------+ + + + | ECG 12 LEAD | Routin | 2019 | Nonrheumatic | Results for this | | | e | 9:38 AM | mitral valve | procedure are in the | | | | PDT | regurgitation | results section. | + +--------+ + + + from Last 3 Months Results ECG 12 lead (2019 9:38 AM PDT) + + + + + + | Component | Value | Ref Range | Performed | Pathologist | | | | | At | Signature | + + + + + + | VENTRICULAR | 75 | BPM | [facility] | | | RATE EKG | | | | | + + + + + + | ATRIAL RATE | 75 | BPM | [facility] | | + + + + + + | P-R | 160 | ms | [facility] | | | INTERVAL | | | | | + + + + + + | QRS | 74 | ms | [facility] | | | DURATION | | | | | + + + + + + | Q-T | 398 | ms | [facility] | | | INTERVAL | | | | | + + + + + + | Q-T | 444 | ms | [facility] | | | INTERVAL | | | | | | (CORRECTED) | | | | | + + + + + + | P WAVE AXIS | 39 | degrees | [facility] | | + + + + + + | QRS AXIS | 43 | degrees | [facility] | | + + + + + + | T AXIS | 103 | degrees | [facility] | | + + + + + + | INTERPRETAT | Normal sinus | | [facility] | | | ION TEXT | rhythmNonspecific T wave | | | | | | abnormalityAbnormal | | | | | | ECGNo previous ECGs | | | | | | availablePlease refer to | | | | | | Providers office visit | | | | | | note for Providers | | | | | | Interpretation.Confirmed | | | | | | by [facility], | | | | | | [facility] ([id number]), | | | | | | editorial cartoonist Cosmo Gonzalez | | | | | | (253) on 2019 | | | | | | 10:39:40 AM | | | | + + + + + + + + | Specimen | + + | | + + + + + | Narrative | Performed At | + + + | | | + + + + +---------+ + + | Performing | Address | City/State/Zipcode | Phone Number | | Organization | | | | + +---------+ + + | [facility] | | | | + +---------+ + + from Last 3 Months Insurance + +--------+ +--------+-------+---------+--------+ | Payer | Benefi | Subscriber | Effect | Phone | Address | Type | | | t Plan | ID | mike | | | | | | / | | Dates | | | | | | Group | | | | | | + +--------+ +--------+-------+---------+--------+ | BCBS | BCBS | [id number] | | | | PPO | | | [place]OS | | 019-Pr | | | | | | PPO | | esent | | | | + +--------+ +--------+-------+---------+--------+ | [employer] | IHS | [id number] | Effect | | | Indemn | | SERVICE | YELLOW | | mike | | | ity | | | [place] | | for | | | | | | | | all | | | | | | | | dates | | | | + +--------+ +--------+-------+---------+--------+ + +--------+ +--------+ + + | Guarantor Name | Accoun | Relation to | Date | Phone | Billing Address | | | t Type | Patient | of | | | | | | | | | | + +--------+ +--------+ + + | Batsheva Rosa | Person | Self [birth year] | [address] | | | [place] | | 1960 | [phone] | [place] [address] | | | [place] | | | 2 (Home) | | + +--------+ +--------+ + + Advance Directives + + + + + | Type | Date Recorded | Patient | Explanation | | | | Master Ship | | + + + + + | Power of | | | | | Keypunch Operator | | | | + + + + + | Advance | | | | | Directive | | | | + + + + +"
--- OUTSIDE RECORDS SUMMARY | ~2019-04-26 | XMS | Clinical Summary ---
Demographics + + + | Address | [address] | | | [place] [address] | + + + | Home Phone | | + + + | Preferred Language | Unknown | + + + | Marital Status | Unknown | + + + | Protestant Affiliation | Unknown | + + + | Race | Unknown | + + + | Ethnic Group | Unknown | + + + Author + + + | Author | [facility] | | | and Alanana | + + + | Organization | [facility] | | | and [...] Team Providers + +------+ + | Care Lead Python Developer Name | Role | Phone | + [...] [address] | | | | | | [place] [address] | | | | | | [phone] | | | | | | | [...] | | | | | by [facility], | | | | | | [facility] ([address]), | | | | | | editor house organ Cosmo Gonzalez | | | | | [...] +--------+ +--------+-------+---------+--------+ | BCBS | BCBS | [id number] | | | | PPO | | | OOS | | 019-Pr | | | | | | PPO | | esent | | | | + +--------+ +--------+-------+---------+--------+ | [facility] | IHS | [id number] | Effect | | | Indemn | [...] Person | Self [birth year] | [address] | | | [place] | | 1960 | [phone] | [place] [address] | | | [place] | | | 2 (Home) | | + +--------+ +--------+ + + Advance Directives + + + + + | Type | Date Recorded | Patient | Explanation | | | | Clay Caster | | + + + + + | Power of | | | | | Machine Try Out Setter | | | | + + + + + | Advance | | | | | Directive | | | | + + + + +"
--- OUTSIDE RECORDS SUMMARY | ~2019-04-26 | XMS | Encounter Summary ---
Demographics + + + | Address | [address] | | | [place] [address] | + + + | Home Phone | | + + + | Preferred Language | Unknown | + + + | Marital Status | Unknown | + + + | Mormonism Affiliation | Unknown | + + + | Race | Unknown | + + + | Ethnic Group | Unknown | + + + Author + + + | Author | [facility] | | | and Alanana | + + + | Organization | [facility] | | | and Alanana [...] Team Providers + +------+ + | Care Stylist Assistant Name | Role | Phone | + +------+ + | Jess Sow PA-C | PCP | | + +------+ + Reason for Referral Diagnostic/Screening (Routine) + +--------+ + + + + | Status | Reason | Specialty | Diagnoses / | Referred By | Referred To | | | | | Procedures | Contact | Contact | + +--------+ + + + + | Authorized | | | Diagnoses | Means, | [facility] | | | | | Dilated | Oracio Cho, | [facility] | | | | | cardiomyopat | MD [address] | | | | | hy (HCC) | [address] | [address]U PELLETIER | | | | | Pressure in | PONCE F | [place], [place] | | | | | left side of | [place], [place] | [address] | | | | | chest Type | [address] | Phone: | | | | | 2 diabetes | Phone: | [phone] | | | | | mellitus | [phone] | Fax: | | | | | with both | Fax: | [phone] | | | | | eyes | [phone] | | | | | | affected by | | | | | | | mild | | | | | | | nonprolifera | | | | | | | tive | | | | | | | retinopathy | | | | | | | without | | | | | | | macular | | | | | | | edema, | | | | | | | without | | | | | | | long-term | | | | | | | current use | | | | | | | of insulin | | | | | | | (HCC) | | | | | | | Essential | | | | | | | hypertension | | | | | | | Procedures | | | | | | | NM Nuclear | | | | | | | Stress Test | | | | | | | | | | | | | | (Vasodilator | | | | | | | ) | | | + +--------+ + + + + Diagnostic/Screening (Routine) + +--------+ + + + + | Status | Reason | Specialty | Diagnoses / | Referred By | Referred To | | | | | Procedures | Contact | Contact | + +--------+ + + + + | Authorized | | | Diagnoses | Angela, | [facility] | | | | | | Oracio Cho, | [facility] | | | | | Nonrheumatic | MD [address] | | | | | mitral | [address] | [address]ER | | | | | valve | PONCE F | [place], [place] | | | | | regurgitatio | [place], [place] | [address] | | | | | n Dilated | [address] | Phone: | | | | | cardiomyopat | Phone: | [phone] | | | | | hy ([facility]) | [phone] | Fax: | | | | | Pedal edema | Fax: | [phone] | | | | | Procedures | [phone] | | | | | | ECHO | | | | | | | Complete | | | + +--------+ + + + + Reason for Visit + + + | Reason | Comments | + + + | Follow-up | edmea redused EF mitral regurgitation | + + + Evaluate & Treat (Routine) +--------+--------+ + + + + | Status | Reason | Specialty | Diagnoses / | Referred By | Referred To | | | | | Procedures | Contact | Contact | +--------+--------+ + + + + | Closed | | Cardiology | Diagnoses | Aggie, | Angela | | | | | myrna, | Lucretia Luo, | Oracio Cho MD | | | | | reduced F, | PA-C [address] | [address] | | | | | mitral | | [address] | | | | | regurgitatio | [address] | [address] | | | | | n | WAY | [address] | | | | | Procedures | [place], | [address] Phone: | | | | | Consult | [place] [address] | [phone] | | | | | | Phone: | Fax: | | | | | | [phone] | [phone] | | | | | | Fax: | | | | | | | [phone] | | +--------+--------+ + + + + Encounter Details +--------+---------+ + + + | Date | Type | Department | Care Team | Description | +--------+---------+ + + + | 04/04/ | Office | [facility] | Oracio Miller, | Nonrheumatic mitral | | 2019 | Visit | CARDIOLOGY TAJ | [address] | valve regurgitation | | | | [address] | PONCE [address] TAJ, | (Primary Dx); | | | | [place], [place] | [place] [address] | Dilated | | | | [address] | [phone] | cardiomyopathy | | | | [phone] | | ([facility]); Pedal edema; | | | | | [...] | | | | | | insulin ([facility]); | | | | | | Essential | | | | | | hypertension | +--------+---------+ + + + Social History + +-------+ [...] + + documented as of this encounter Last Filed Vital Signs + + + [...] | | + + + + + documented in this encounter Progress Notes Oracio Miller MD - 2019 9:00 AM PDTFormatting of this note might be different fro m the original. Subjective: Patient ID: Batsheva Rosa is a 59 y.o. female. Patient's medications, allergies, past medical, surgical, social and family histories were obtained and reviewed as appropriate. SHASHANK Herman came to the office today for a cardiology evaluation. In July, she was hospital ized at [facility] for 3 days for pneumonia. At that time, she was noted to hav e an abnormal EKG, and pedal edema, that responded to furosemide. She had an echocardiogram 07/29/2018 showing mild global hypokinesis, but overall well preserved LV systolic function, with an EF of 50-55%. There was moderate MR, and moderate left atrial enlargement, as well as borderline pulmonary hypertension and a trivial pericardial effusion at that time. Sinc e then, she has done relatively well, but "every once in a while I retain water ". She is t rying to follow a low-sodium diet, with difficulty. She also had a Holter monitor in 2017 for occasional palpitations, that occur 2 or 3 times per month, usually when lying d own or sitting, feeling her heart "beating really fast "for less than a minute. The Holter showed no significant abnormalities. It seems to be a relatively minor problem, and at this point, I do not think she needs repeat monitoring. Several weeks ago, on awakening, she sainz d an episode of left-sided chest pressure, that lasted somewhat less than 5 minutes, moderat e in intensity, radiating to the back, with associated dyspnea, and nausea. Her history of diabetes, I think this requires evaluation with a nuclear stress test. Her EKG is mildly ab normal, with lateral, nonspecific T wave abnormalities, but she cannot do a treadmill test d ue to problems with her left leg, which "quits on me "at times, has caused her to fall once or twice, and she now walks with a cane following a left knee injury with 1 of these. There fore, this will be done as a Lexiscan study. Her echocardiogram will also be updated. Her BP is elevated, 150/99 added bisoprolol 5 mg daily to her other medications. I will see her back after the above tests for further evaluation. ROS CONSTITUTIONAL: Obesity. No recent significant weight change, denies recent fever, chills , has occasional night sweats (does not check her BS), denies significant fatigue NEUROLOGIC: She has a history of a CVA in 2002, left arm and leg numbness for about 10 day s, with no residual deficits, no recurrent symptoms (has been on Plavix since then). She sainz s a h/o Migraines with Auras, denies seizures, syncope. No dizziness, lightheadedness, but gets "wobbly if I'm standing and close my eyes". No numbness, tingling, has Peripheral Neuro laith with "stinging" paresthesias in her legs and feet, nerve conduction testing was inconc lusive. EYES: Diabetic Proliferative Retinopathy. No amaurosis, diplopia, recent visual changes o r glaucoma ENT: No hearing loss, tinnitus, epistaxis, dysphagia ENDOCRINE: She has Type II Diabetes mellitus (Hgb A1c was 6.9 on 12/13/18). No history of th yroid disorders or other endocrine problems. No excessive hunger, thirst. PULMONARY/SLEEP: No dyspnea, orthopnea, paroxysmal nocturnal dyspnea. She has a history o f Asthma (related to URIs), no history of emphysema. She had community-acquired Pneumonia 0 08/03 and 2017. She has had the Pneumonia vaccine. She is aware of loud Snoring, denies sports physiologist ea, daytime somnolence. Sleep is refreshing. CARDIOVASCULAR: Denies chest pain, had an episode of left-sided chest pressure once in Feb, when awakening, lasted < 5 minutes, no recurrence, "moderate", with radiation to th e back, and associated SOB, nausea, and diarrhea. No history of CAD. ? history of heart alan lure, mild Dilated Cardiomyopathy seen on an echo 07/1418, moderate MR. No history of cardiac arrhythmias. She has occasional Palpitations, as above. No history of a heart murmur, rheu matic fever. She has Essential Hypertension, Hyperlipidemia. She has occasional Pedal Jason a, no claudication symptoms. No h/o an AAA. -- Echo (07/29/18): EF 50-55%, mild global hypokinesis, normal RV size and function, moderat e LAE, moderate MR, mild TR, trace PI, borderline pulmonary hypertension, peak RVSP 35.5 mmH g, trivial pericardial effusion -- 24 Hour Holter (07/02/17): NSR, ave HR 90, range 76-117 bpm, 4 PACs, one 6 beat run of PA T GASTROINTESTINAL: No recent abdominal pain, nausea, vomiting or diarrhea. Denies PUD, deng na, hematochezia, hepatitis. RENAL/: No history of kidney disease. No dysuria, hematuria, urinary urgency, hesitancy . No active nurse obgyn disorders. HEMATOLOGY/ONCOLOGY: No h/o bleeding disorders, DVT, PE. She notes easy bruisability, wi thout significant bleeding. No history of anemia, transfusions. No history of cancer. MUSCULOSKELETAL: No myalgias, low back pain with Lumbar Spondylosis, Osteoarthritis with l eft hip Arthralgias, left leg "gives out" at times, fell, left knee injury in February. No history of rheumatologic or autoimmune diseases. CUTANEOUS: No rashes, pruritus, lesions. PSYCHIATRIC: No history of depression, significant anxiety or other psychiatric problems. Past Medical History: Diagnosis Date Asthma CVA (cerebrovascular accident) (HCC) 2002 left-sided numbness for 10 days, no residual deficits on Plavix since then Diabetes mellitus, type II (HCC) 2002 Diabetic retinopathy associated with type 2 diabetes mellitus (HCC) Dilated cardiomyopathy (HCC) Essential hypertension 2002 Hyperlipidemia associated with type 2 diabetes mellitus (HCC) Moderate mitral regurgitation Past Surgical History: Procedure Laterality Date cataract Bilateral 2012 CHOLECYSTECTOMY 2011 laparoscopic CYST REMOVAL Left left scapular SKIN TAG REMOVAL lower back UMBILICAL HERNIA REPAIR 2010 VOLVULUS REDUCTION 2004 with partial colon resection ("redundant colon") Family History Problem Relation Age of Onset Diabetes, NIDDM Mother Heart failure Mother Other (see comment) Mother PVD Restless leg Mother Hypertension Mother Stroke Father 76 x 2 Diabetes, NIDDM Father Hypertension Father Heart failure Father Other (see comment) Father PVD Diabetes, NIDDM Sister Arrhythmia Sister Other (see comment) Sister esophageal stricture Diabetes, NIDDM Brother Heart disease Brother unknown heart problem Diabetes, NIDDM Brother Diabetes, NIDDM Brother Other (see comment) Brother PVD Social History Socioeconomic History Marital status: Not on file Spouse name: Not on file Number of children: Not on file Years of education: Not on file Highest education level: Not on file Social Needs Financial resource strain: Not on file Food insecurity - worry: Not on file Food insecurity - inability: Not on file Transportation needs - medical: Not on file Transportation needs - non-medical: Not on file Occupational History 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: [employer] Tobacco Use Smoking status: Current Some Day Smoker Smokeless tobacco: Never Used Tobacco comment: smokes 1 cigarette every 1-3 months Substance and Sexual Activity Alcohol use: Yes Comment: 1 rum drink 2 x per month Drug use: Not on file Sexual activity: Not on file Other Topics Concern Not on file Social History Narrative Not on file Allergies Allergen Reactions Sulfa Antibiotics Hives Intolerance No active intolerances/contraindications Current Outpatient Medications Medication Sig Dispense Refill acetaminophen (TYLENOL) 325 mg tablet Take 650 mg by mouth every 4 hours as needed for Pain. bisoprolol (ZEBETA) 5 mg tablet Take 1 tablet by mouth Daily. 30 tablet 11 cholecalciferol (VITAMIN D-3) 5000 units TABS Take 5,000 Units by mouth Daily. clopidogrel (PLAVIX) 75 mg tablet Take 75 mg by mouth Daily. cyanocobalamin (VITAMIN B-12) 100 MCG tablet Take 50 mcg by mouth Daily. lisinopril (PRINIVIL, ZESTRIL) 5 mg tablet Take 5 mg by mouth Daily. Loratadine 10 MG CAPS Take by mouth. pantoprazole (PROTONIX) 40 mg tablet Take 40 mg by mouth every morning (before breakfas t). rosuvastatin (CRESTOR) 40 MG tablet Take 40 mg by mouth nightly. SITagliptin-metFORMIN (JANUMET) 50-1,000 mg per tablet Take 1 tablet by mouth 2 times d aily (with breakfast & dinner). No current facility-administered medications for this visit. Objective: BP 140/90 Comment: RA | Pulse 77 | Wt 86.6 kg (190 lb 14.4 oz) | SpO2 98% Right arm BP 150/90 left arm PHYSICAL EXAM GENERAL: Well developed, well nourished, in no distress. Appears approximately stated age . HEENT: Normocephalic, atraumatic. EYES: PERRL, sclerae anicteric, no xanthelsasmas MOUTH: Oral mucosae moist, dentition adequate, no lesions noted NECK: No JVD, lymphadenopathy, thyromegaly, bruits. Carotid pulses are 2+ bilaterally LUNGS: Clear bilaterally, with no rales, rhonchi or wheezing noted, respirations unlabored HEART: Nondisplaced PMI, regular rate and rhythm, S1, S2 normal. No murmurs, rubs or gall ops noted. ABDOMEN: Soft, nontender, no organomegaly, masses or bruits. Bowel sounds are normal in a ll 4 quadrants. The abdominal aortic pulsation is not palpable. EXTREMITIES: No edema. Radial pulses 2+ bilaterally. Femoral pulses are 2+ bilaterally wi thout bruits. DP and PT pulses are 2+ bilaterally. SKIN: Warm and dry, capillary refill is normal, no lesions. MUSCULOSKELETAL: Walks with a cane due to a left knee injury NEUROLOGIC: Awake, alert and oriented x 3. No focal motor deficits. PSYCHIATRIC: Appropriate, affect appears normal EKG: Normal sinus rhythm, rate 75, Assubel LAE, mild, nonspecific lateral T wave abnormalit ies, not significantly changed compared to a previous tracing done 06/18/2017, except the left atrial enlargement is less prominent on today's tracing Assessment: Batsheva was seen today for follow-up. 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 Plan: Follow up after the above tests. documented in this en counter Plan of Treatment +--------+---------+ + + + | Date | Type | Specialty | Care Team | Description | +--------+---------+ + + + | 05/09/ | Office | Cardiology | Hilda Judge | | | 2018 | Visit | | MONIQUE Marrufo [address] | | | | | | [address] | | | | | | [place] [address] | | | | | | [phone] | | | | | | | | +--------+---------+ + + + + + +--------+ + + | Name | Type | Priori | Associated Diagnoses | Order Schedule | | | | ty | | | + + +--------+ + + | ECHO Complete | Echocardiog | Routin | Nonrheumatic | Expected: | | | sherrie | e | mitral valve | 04/11/2019, Expires: | | | | | regurgitation | 2020 | | | | | Dilated | | | | | | cardiomyopathy (HCC) | | | | | | Pedal edema | | + + +--------+ + + | NM Nuclear Stress | Cardiac | Routin | Dilated | Expected: | | Test (Vasodilator) | Nuclear | e | cardiomyopathy (HCC) | 04/11/2019, Expires: | | | Medicine | | Pressure in left | 2020 | | | | | side of chest Type | | | | | | [...] | | | | | | insulin (HCC) | | | | | | Essential | | | | | | hypertension | | + + +--------+ + + documented as of this encounter [...] + + documented in this encounter Results ECG 12 lead (2019 9:38 AM [...] | | | | | by [facility] [place] Read Only, | | | | | | [facility] [place] ([id number]), | | | | | | mapping editor Cosmo Gonzalez | | | | | [...] | | | + +---------+ + + documented in this encounter Visit Diagnoses + + | Diagnosis | + + | Nonrheumatic mitral valve regurgitation - Primary | + + | Dilated cardiomyopathy (HCC) Other primary cardiomyopathies | + + | Pedal edema Edema | + + | Palpitations | + + | Pressure in left side of chest | + + | 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
--- OUTSIDE RECORDS SUMMARY | ~2019-04-26 | XMS | Encounter Summary ---
Demographics + + + | Address | [address] | | | [place] [address] | + + + | Home Phone | | + + + | Preferred Language | Unknown | + + + | Marital Status | Unknown | + + + | Latter-Day Affiliation | Unknown | + + + | Race | Unknown | + + + | Ethnic Group | Unknown | + + + Author + + + | Author | [facility] | | | and Alanana | + + + | Organization | [facility] | | | and Alanana | [...] Team Providers + +------+ + | Care Pest Control Worker Helper Name | Role | Phone | + [...] | Authorized | | | Diagnoses | [place], | [facility] | | | | | Dilated | Oracio Cho, | [facility] | | | | | cardiomyopat | MD [address] | | | | | hy (HCC) | [address] | [address]ER | | | | | Pressure in | PONCE F | [place], [place] | | | | | left side of | [place], [place] | [address] | | | | | chest Type | [address] | Phone: | | | | | 2 diabetes | Phone: | [phone] | | | | | mellitus | [phone] | Fax: | | | | | with both | Fax: | [phone] | | | | | eyes | [phone] | | | | | | affected [...] | | | | Oracio Cho, | [facility] | | | | | Nonrheumatic | MD [address] | | | | | mitral | [address] | [address] | | | | | valve | PONCE F | [place], [place] | | | | | regurgitatio | [place], [place] | [address] | | | | | n Dilated | [address] | Phone: | | | | | cardiomyopat | Phone: | [phone] | | | | | hy ([facility]) | [phone] | Fax: | | | | | Pedal edema | Fax: | [phone] | | | | | Procedures | [phone] | | | | | | ECHO [...] | | | reduced F, | PA-C [address] | [address] | | | | | mitral | | [address] | | | | | regurgitatio | [address] | [address] | | | | | n | WAY | [address] | | | | | Procedures | [place], | [address] Phone: | | | | | Consult | [place] [address] | [phone] | | | | | | Phone: | Fax: | | | | | | [phone] | [phone] | | | | | | Fax: | | | | | | | [phone] | | +--------+--------+ + + + + Encounter Details +--------+---------+ + + + | Date | Type | Department | Care Team | Description | +--------+---------+ + + + | 04/04/ | Office | [facility] | Oracio Miller, | Nonrheumatic mitral | | 2019 | Visit | CARDIOLOGY TAJ | [address] | valve regurgitation | | | | [address] | PONCE F TAJ, | (Primary Dx); | | | | [place], [place] | [place] [address] | Dilated | | | | [address] | [phone] | cardiomyopathy | | | | [phone] | | ([facility]); Pedal edema; | | | [...] | | | | | | insulin ([facility]); | | | | | [...] In July, she was hospital ized at [facility] for 3 days for pneumonia. At [...] She is aware of loud Snoring, denies refund clerk ea, daytime somnolence. Sleep is refreshing. CARDIOVASCULAR: [...] hematuria, urinary urgency, hesitancy . No active manager printing disorders. 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
[~2019-04-26 12:08] MED LIST changes: +COLACE100 MG PO; +DOXYCYCLINE HY100 MG PO; +FLONASE ALLERG9.9 ML NAS; +FUROSEMIDE40 MG PO; +POTASSIUM CHLO20 ME1 PO; +TESSALON PERLE100 MG PO; +VENTOLIN HFA18 GM INH; +XYZAL5 MG PO
--- OUTSIDE RECORDS SUMMARY | 2019-04-26 12:12 | XMS ---
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 Aurelio has no Care Guidelines for this patient. Rachana VISIT COUNT (12 MO.) 2 MONI Carrera TOTAL 2 NOTE: Visits indicate total known visits. 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
[2019-04-26] MEDS ORDERED: LASIX20 MG PO (16:01)
--- NOTE | 2019-04-26 20:21 | EKG ---
[facility] [address] [place] [address] Signed Normal sinus rhythm Abnormal QRS-T angle, consider primary T wave abnormality Abnormal ECG No previous ECGs available Confirmed by ANNY MANSFIELD MD ([id number]) on 04/26/2019 8:20:51 PM Electronically Signed By: ANNY MANSFIELD MD 04/26/192020 PATIENT NAME: NUNU MOURA TAYA Electrocardiogram DATE OF : 56 PHYSICIAN: ANNY MANSFIELD MD REPORT #: [id number] REPORT IS CONFIDENTIAL AND NOT TO BE RELEASED WITHOUT AUTHORIZATION
== END 2019-04-26 16:14 | disposition home or self-care (01) ==
LOC: ED 12:08
DX: J81.1 Chronic pulmonary edema (principal); E11.9 Type 2 diabetes mellitus without complications; Z86.73 Personal history of transient ischemic attack (TIA), and cerebral infarction without residual deficits; I10 Essential (primary) hypertension; Z87.891 Personal history of nicotine dependence; Z88.2 Allergy status to sulfonamides; Z79.899 Other long term (current) drug therapy; Z79.84 Long term (current) use of oral hypoglycemic drugs
CPT/HCPCS: 71045; 71260; 80053; 83690; 83880; 84484; 85025; 85379; 93005; 93010; 99285-25; J1940; Q9967

== ENCOUNTER 2020-09-18 16:52 | Emergency (ER) | payer BC, OTHER ==
[~2020-09-18] VITALS: Ht 157.5 cm; Wt 93.8 kg
[~2020-09-18 16:52] MED LIST changes: +LASIX20 MG PO
[2020-09-18] MEDS ORDERED: JANUMET 50-1,01 EACH PO (17:47)
[2020-09-18] MEDS ORDERED: PREDNISONE20 MG PO (21:27)
[2020-09-18] MEDS ORDERED: ZITHROMAX500 MG PO (21:27)
--- NOTE | 2020-09-19 00:31 | EKG ---
[facility] [address] [place], [place] [address] Signed Normal sinus rhythm Nonspecific T wave abnormality Abnormal ECG When compared with ECG of 26-APR-2019 12:18, No significant change was found Confirmed by ROSA ISELA NULL MD ([id number]) on 09/19/2020 12:30:57 AM Electronically Signed By: ROSA ISELA NULL MD 09/19/2030 PATIENT NAME: MOURANUNU TAYA Electrocardiogram DATE OF : 56 PHYSICIAN: ROSA ISELA NULL MD REPORT #: [id number] REPORT IS CONFIDENTIAL AND NOT TO BE RELEASED WITHOUT AUTHORIZATION
== END 2020-09-18 22:19 | disposition home or self-care (01) ==
LOC: ED 16:52
DX: J18.9 Pneumonia, unspecified organism (principal); Z20.822 Contact with and (suspected) exposure to COVID-19; E11.9 Type 2 diabetes mellitus without complications; Z86.73 Personal history of transient ischemic attack (TIA), and cerebral infarction without residual deficits; I10 Essential (primary) hypertension; Z88.2 Allergy status to sulfonamides; Z79.899 Other long term (current) drug therapy
CPT/HCPCS: 71046; 80053; 83880; 84484; 85025; 93005; 93010; 94640; 96374; 96375; 99284-25; C9803; J0696; J2930; U0003

== ENCOUNTER 2020-11-12 12:13 | Emergency (ER) | payer BC, OTHER ==
[~2020-11-12] VITALS: Ht 157.5 cm; Wt 93.4 kg
[~2020-11-12 12:13] MED LIST changes: +JANUMET 50-1,01 EACH PO; +PREDNISONE20 MG PO; +ZITHROMAX500 MG PO
--- NOTE | 2020-11-12 15:03 | EKG ---
[facility] [address] [place] [address] Signed Normal sinus rhythm Abnormal QRS-T angle, consider primary T wave abnormality Abnormal ECG When compared with ECG of 18-SEP-2020 19:37, No significant change was found Confirmed by ROSA ISELA NULL MD ([id number]) on 11/12/2020 3:03:12 PM Electronically Signed By: ROSA ISELA NULL MD 11/12/20 1503 PATIENT NAME: NUNU MOURA Electrocardiogram DATE OF : 56 PHYSICIAN: ROSA ISELA NULL MD REPORT #: [id number] REPORT IS CONFIDENTIAL AND NOT TO BE RELEASED WITHOUT AUTHORIZATION
== END 2020-11-12 17:37 | disposition home or self-care (01) ==
LOC: ED 12:13
DX: I11.0 Hypertensive heart disease with heart failure (principal); I50.9 Heart failure, unspecified; E11.9 Type 2 diabetes mellitus without complications; Z87.891 Personal history of nicotine dependence; Z88.2 Allergy status to sulfonamides; Z79.899 Other long term (current) drug therapy; Z79.52 Long term (current) use of systemic steroids
CPT/HCPCS: 36415; 71045; 80053; 83880; 84484; 85025; 93005; 93010; 96374; 99285-25; J1940

== ENCOUNTER 2021-01-25 13:19 | Emergency (ER) | payer BC, OTHER ==
[~2021-01-25] VITALS: Ht 157.5 cm; Wt 93.4 kg
--- OUTSIDE RECORDS SUMMARY | 2021-01-25 13:24 | XMS ---
PreManage Notification: NUNU MOURA Security Eight Section Blower Events No recent Security Events currently on file CRITERIA MET - [facility] CARE PROVIDERS [facility] 04/26/2019-[facility] PHONE: [phone] Aurelio has no Care Guidelines for this patient. Care History Medical/Surgical 04/26/2019 [facility] \T\middot;\T\nbsp; PATIENT- [facility] ELIGIBLE \T\middot;\T\nbsp; PLEASE REFER PATIENT TO [facility] FOR NON EMERGENT MEDICAL NEEDS. \T\middot;\ T\nbsp; [facility] CAN SEE PATIENTS SAME DAY FOR APTS IF PATIENT CALLS FIRST THING IN THE MORNING. E.D. VISIT COUNT (12 MO.) 3 [facility] TOTAL 3 NOTE: Visits indicate total known visits. ED/UCC VISIT TRACKING (12 MO.) 01/25/2021 13:21 [facility] [place] TYPE: Emergency COMPLAINT: - SOB 11/12/2020 12:14 [facility] [place] TYPE: Emergency COMPLAINT: - SOB, SWOLLEN FEET DIAGNOSES: - Other usp (current) drug therapy - Heart failure, unspecified - Allergy status to sulfonamides - Type 2 diabetes mellitus without complications - Personal history of nicotine dependence - Hypertensive heart disease with heart failure - jail (current) use of systemic steroids - Shortness of breath 09/18/2020 16:[address] [facility] [place] TYPE: Emergency COMPLAINT: - DIFFICULTY BREATHING DIAGNOSES: - Cough - Other termite exterminator (current) drug therapy - Type 2 diabetes mellitus without complications - Personal history of transient ischemic attack (TIA), and cerebral infarction without residual deficits - Essential (primary) hypertension - Pneumonia, unspecified organism - Allergy status to sulfonamides INPATIENT VISIT TRACKING (12 MO.) No inpatient visits to display in this time frame [email or web address]
[2021-01-25] MEDS ORDERED: DECADRON6 MG PO (15:27)
[2021-01-25] MEDS ORDERED: ONDANSETRON ODT8 MG PO (15:35)
== END 2021-01-25 15:35 | disposition home or self-care (01) ==
LOC: ED 13:19
DX: U07.1 COVID-19 (principal); J45.901 Unspecified asthma with (acute) exacerbation; E11.9 Type 2 diabetes mellitus without complications; I10 Essential (primary) hypertension; Z88.2 Allergy status to sulfonamides; Z79.899 Other long term (current) drug therapy
CPT/HCPCS: 71045; 80053; 85025; 96374; 99284-25; J2930; J7040; M0243; Q0244

== ENCOUNTER 2021-07-05 12:37 | Emergency (ER) | payer BC, OTHER ==
[~2021-07-05] VITALS: Ht 157.5 cm; Wt 93.8 kg
[~2021-07-05 12:37] MED LIST changes: +DECADRON6 MG PO; +ONDANSETRON ODT8 MG PO
--- OUTSIDE RECORDS SUMMARY | 2021-07-05 12:40 | XMS ---
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 PHONE: [phone] Aurelio has no Care Guidelines for this patient. Care History Medical/Surgical 04/26/2019 [facility] \T\middot;\T\nbsp; PATIENT- [facility] ELIGIBLE \T\middot;\T\nbsp; PLEASE REFER PATIENT TO [facility] FOR NON EMERGENT MEDICAL NEEDS. \T\middot;\ T\nbsp; [facility] CAN SEE PATIENTS SAME DAY FOR APTS IF PATIENT CALLS FIRST THING IN THE MORNING. E.D. VISIT COUNT (12 MO.) 4 [facility] TOTAL 4 NOTE: Visits indicate total known visits. ED/UCC VISIT TRACKING (12 MO.) 07/05/2021 12:[address] [facility] [place] TYPE: Emergency COMPLAINT: - FLU SYMPTOMS 01/25/2021 13:21 [facility] [place] TYPE: Emergency COMPLAINT: - SOB DIAGNOSES: - Type 2 diabetes mellitus without complications - Unspecified asthma with (acute) exacerbation - Other malaise - Other assisted (current) drug therapy - Allergy status to sulfonamides - SOPHIAID-19 - Essential (primary) hypertension 11/12/2020 12:14 [facility] [place] TYPE: Emergency COMPLAINT: - SOB, SWOLLEN FEET DIAGNOSES: - Other assisted (current) drug therapy - Heart failure, unspecified - Allergy status to sulfonamides - Type 2 diabetes mellitus without complications - Personal history of nicotine dependence - Hypertensive heart disease with heart failure - intermediate manager (current) use of systemic steroids - Shortness of breath 09/18/2020 16:53 [facility] [place] TYPE: Emergency COMPLAINT: - DIFFICULTY BREATHING DIAGNOSES: - Cough - 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
[2021-07-05] MEDS ORDERED: LISINOPRIL20 MG PO (13:04)
[2021-07-05] MEDS ORDERED: ONDANSETRON ODT8 MG PO (13:16)
[2021-07-05] MEDS ORDERED: CYCLOBENZAPRINE10 MG PO (13:16)
== END 2021-07-05 15:25 | disposition home or self-care (01) ==
LOC: ED 12:37
DX: U07.1 COVID-19 (principal); E11.9 Type 2 diabetes mellitus without complications; I10 Essential (primary) hypertension; Z86.73 Personal history of transient ischemic attack (TIA), and cerebral infarction without residual deficits; Z88.2 Allergy status to sulfonamides; Z79.899 Other long term (current) drug therapy; Z23 Encounter for immunization
CPT/HCPCS: 96374; 96375; 99283-25; J1885; J2405; M0247

== ENCOUNTER 2022-05-30 12:59 | Emergency (ER) | payer BC, OTHER ==
[~2022-05-30] VITALS: Ht 157.5 cm; Wt 93.8 kg
[~2022-05-30 12:59] MED LIST changes: +CYCLOBENZAPRINE10 MG PO; +LISINOPRIL20 MG PO
== END 2022-05-30 14:41 | disposition home or self-care (01) ==
LOC: ED 12:59
DX: L20.9 Atopic dermatitis, unspecified (principal); E11.9 Type 2 diabetes mellitus without complications; I10 Essential (primary) hypertension; Z86.73 Personal history of transient ischemic attack (TIA), and cerebral infarction without residual deficits; Z88.2 Allergy status to sulfonamides; Z79.899 Other long term (current) drug therapy; Z79.02 Long term (current) use of antithrombotics/antiplatelets
CPT/HCPCS: 99284; Q0163

== ENCOUNTER 2022-06-25 00:45 | Emergency (ER) | payer BC, OTHER ==
[~2022-06-25] VITALS: Ht 157.5 cm; Wt 88.0 kg
--- OUTSIDE RECORDS SUMMARY | 2022-06-25 00:48 | XMS ---
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 Case Management 07/08/2021-[facility] PHONE: [phone] [facility]/[place] 04/26/2019-[facility] PHONE: [phone] Aurelio has no Care Guidelines for this patient. Care History Medical/Surgical 07/08/2021 [facility] PATIENT- [facility] ELIGIBLE PLEASE REFER PATIENT TO [facility] FOR NON EMERGENT MEDICAL NEEDS. [facility] CAN SEE PATIENTS SAME DAY FOR APTS IF PATIENT CALLS FIRST THING IN THE MORNING. E.D. VISIT COUNT (12 MO.) [address] [facility] TOTAL 3 NOTE: Visits indicate total known visits. 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
[2022-06-25] MEDS ORDERED: PANTOPRAZOLE SO40 MG PO (01:11)
[2022-06-25] MEDS ORDERED: GABAPENTIN100 MG PO (01:11)
[2022-06-25] MEDS ORDERED: TIZANIDINE HCL4 MG PO (01:12)
[2022-06-25] MEDS ORDERED: FLONASE ALLERG9.9 ML NAS (01:58)
[2022-06-25] MEDS ORDERED: AMOX TR-K CLV1 EAC1 PO (01:58)
[2022-06-25] MEDS ORDERED: BENZONATATE100 MG PO (01:59)
== END 2022-06-25 02:18 | disposition home or self-care (01) ==
LOC: ED 00:45
DX: J32.9 Chronic sinusitis, unspecified (principal); E11.9 Type 2 diabetes mellitus without complications; I10 Essential (primary) hypertension; Z86.73 Personal history of transient ischemic attack (TIA), and cerebral infarction without residual deficits; Z88.2 Allergy status to sulfonamides; Z79.899 Other long term (current) drug therapy; Z79.02 Long term (current) use of antithrombotics/antiplatelets
CPT/HCPCS: 71045; 99283-25; A9270

== ENCOUNTER 2023-06-11 19:29 | Emergency (ER) | payer BC, OTHER ==
[~2023-06-11] VITALS: Ht 157.5 cm; Wt 90.0 kg
[~2023-06-11 19:29] MED LIST changes: +AMOX TR-K CLV1 EAC1 PO; +BENZONATATE100 MG PO; +GABAPENTIN100 MG PO; +TIZANIDINE HCL4 MG PO
[2023-06-11 20:07] LABS: BASOPHILS 0.9 % (0-2); EOSINOPHILS 2.2 % (0-6); HEMATOCRIT 35.4 % (35.0-50.0); HEMOGLOBIN 11.4 g/dL (12.0-18.0); LYMPHOCYTES 8.7 % (24-44); MCH 24.7 (27-36); MCHC 32.1 g/dl (30-36); MCV 76.9 fl (81-99); MONOCYTES 8.2 % (0-12); PLATELET COUNT 275 K/uL (140-440); RDW 15.7 (10.5-15.0)
[2023-06-11 20:30] LABS: ALBUMIN 3.4 g/dL (3.4-5.0); ALBUMIN/GLOBULIN RATIO 0.94 (1.1-2.4); ANION GAP 15.2 (7-21); BILIRUBIN, TOTAL 0.4 ng/dL (0.2-1.0); BUN/CREATININE RATIO 10.07 (6.0-28.6); CALCIUM 8.7 mg/dL (8.5-10.1); CREATININE, SERUM 1.29 mg/dL (0.55-1.02); POTASSIUM 4.2 mmol/L (3.5-5.1)
[2023-06-11 20:44] LABS: INFLUENZA B NAA NEGATIVE (NEGATIVE); RESPIRATORY SYNCYTIAL VIR NAA NEGATIVE (NEGATIVE)
[2023-06-11] MEDS ORDERED: GUAIFEN-CODEINE10 ML PO (21:16)
[2023-06-11] MEDS ORDERED: ONDANSETRON ODT8 MG PO (21:16)
[2023-06-11] MEDS ORDERED: CEFDINIR300 MG PO (21:16)
[2023-06-11] MEDS ORDERED: PAXLOVID 300-11 EACH PO (21:16)
[2023-06-11 21:45] VITALS: BP 182/79
[2023-06-12] MEDS ORDERED: CEFDINIR300 MG PO (07:43)
[2023-06-12] MEDS ORDERED: ONDANSETRON ODT8 MG PO (07:43)
[2023-06-12] MEDS ORDERED: PAXLOVID 300-11 EACH PO (07:43)
[2023-06-12] MEDS ORDERED: LASIX20 MG PO (07:43)
== END 2023-06-11 21:45 | disposition home or self-care (01) ==
LOC: ED 19:29
PROVIDERS: Family Medicine
DX: U07.1 COVID-19 (principal); I11.0 Hypertensive heart disease with heart failure; I50.9 Heart failure, unspecified; J18.9 Pneumonia, unspecified organism; E11.9 Type 2 diabetes mellitus without complications; Z88.2 Allergy status to sulfonamides; Z79.899 Other long term (current) drug therapy; Z79.84 Long term (current) use of oral hypoglycemic drugs
CPT/HCPCS: 36415; 71045; 80053; 83880; 85025; 87502; 96374; 96375; 99284-25; A9270; C9803; J1940; J2405; U0002

== ENCOUNTER 2024-12-28 21:18 | Emergency (ER) | payer BC, OTHER ==
[~2024-12-28] VITALS: Ht 157.5 cm; Wt 83.0 kg
[~2024-12-28 21:18] MED LIST changes: +CEFDINIR300 MG PO; +GUAIFEN-CODEINE10 ML PO; +PAXLOVID 300-11 EACH PO
[2024-12-28] MEDS ORDERED: METFORMIN HCL750 MG PO (21:33)
[2024-12-28] MEDS ORDERED: CLOPIDOGREL75 MG PO (21:33)
[2024-12-28] MEDS ORDERED: diazePAM 10 MG/2 ML SYR IM ONE (21:45)
[2024-12-28] MEDS ORDERED: DEXAMETHASONE SOD PHOS 10 MG/ML VIAL IM ONE (21:45)
[2024-12-28] MEDS ORDERED: methylPREDNISolone 4 MG HOME.PACK PO ONE (23:00)
[2024-12-28 23:06] VITALS: BP 159/75
== END 2024-12-28 23:05 | disposition home or self-care (01) ==
LOC: ED 21:18
DX: T63.441A Toxic effect of venom of bees, accidental (unintentional), initial encounter (principal); R22.31 Localized swelling, mass and lump, right upper limb; I10 Essential (primary) hypertension; E11.9 Type 2 diabetes mellitus without complications; Z88.2 Allergy status to sulfonamides; Z91.030 Bee allergy status; Z79.899 Other long term (current) drug therapy; Z79.84 Long term (current) use of oral hypoglycemic drugs
CPT/HCPCS: 96372; 99282; J1100; J1200; J3360